=== PATIENT | male | born 1955 | race Caucasian/White ===

== ENCOUNTER 2019-05-07 11:06 | Inpatient (IN) | payer MEDICARE ==
[2019-05-07] MEDS ORDERED: LIDOCAINE 1% INJ 10MG/ML (20 ML MDV) ONE (12:20)
[2019-05-07] MEDS ORDERED: IV FLUID CONTINUATION 1,000 ML IV ONE (12:44)
[2019-05-07] MEDS: MIDAZOLAM (PF) 2 MG/2 ML VIAL IVP ONE ×2 (12:47→12:50)
[2019-05-07] MEDS ORDERED: BIVALIRUDIN BOLUS 250 MG/50 ML IV ONE (12:50)
[2019-05-07] MEDS ORDERED: BIVALIRUDIN 250 MG in SODIUM CHLORIDE 0.9% 50 ML IV ONE (12:50)
[2019-05-07] MEDS: NITROGLYCERIN 1000MCG/10ML SYRINGE INTRACORON ONE ×3 (12:51→13:15)
[2019-05-07] MEDS ORDERED: PRASUGREL 10 MG TAB ONE (12:55)
[2019-05-07] MEDS ORDERED: MIDAZOLAM (PF) 2 MG/2 ML VIAL IVP ONE (12:59)
[2019-05-07] MEDS ORDERED: PRASUGREL 10 MG TAB PO ONE (12:59)
[2019-05-07] MEDS ORDERED: IOPAMIDOL-370 125ML BTL INJ ONE (13:15)
[2019-05-07] MEDS ORDERED: IOPAMIDOL-370 50ML BTL INJ ONE (13:21)
[2019-05-07] MEDS ORDERED: HYDROmorphone 1 MG/ML 1 ML SYRINGE ONE (13:23)
[2019-05-07] MEDS ORDERED: HYDROmorphone 1 MG/ML 1 ML SYRINGE IVP ONE (13:24)
[2019-05-07] MEDS ORDERED: SODIUM CHLORIDE 0.9% 1,000 ML IV ONE (13:25)
[2019-05-07] MEDS ORDERED: ACETAMINOPHEN TAB 500 MG TAB PO PRN (13:38)
[2019-05-07] MEDS ORDERED: MAG HYDROX/AL HYDROX/SIMETH 30 ML CUP PO PRN (13:39)
[2019-05-07] MEDS ORDERED: ZOLPIDEM 5 MG TAB PO PRN (13:39)
[2019-05-07] MEDS ORDERED: NITROGLYCERIN SL TABS 0.4 MG TAB SUBLINGUAL PRN (13:39)
[2019-05-07] MEDS ORDERED: RX INFO: IV CONTRAST WAS GIVEN 1 EACH MISC MISCELLANE PRN (13:39)
[2019-05-07] MEDS ORDERED: ATROPINE SULFATE 0.1 MG/ML 10ML SYRINGE IV PRN (13:39)
[2019-05-07] MEDS ORDERED: SODIUM CHLORIDE 0.9% 1,000 ML IV SCH (13:45)
[2019-05-07 14:11] VITALS: BMI 32.5
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
--- NOTE | 2019-05-07 19:02 | LTR ---
DATE OF SERVICE: 05/07/[address] Philippe: Mr. Rivas Jerome underwent today a heart catheterization and that revealed severe disease involving the proximal left and mid left anterior descending artery. He underwent successful stenting of the mid LAD with good angiographic results and without any complication. I want to thank you for allowing us to participate in his care and please do not hesitate to call if you have any questions or concerns. Sincerely, MMCLEOPATRAL / IJN: [id number] /
[2019-05-07] MEDS ORDERED: ATORVASTATIN 80 MG TAB PO SCH (21:00)
[2019-05-07] MEDS ORDERED: ALPRAZolam 1 MG TAB PO SCH (21:00)
[2019-05-08 07:07] LABS: Basophils % (A) 1 %; Eosinophils # (A) 0.1 k/uL (0-0.7); Eosinophils % (A) 3 %; HCT 43.1 % (39.0-53.0); HGB 14.2 gm/dL (13.0-17.5); Lymphocytes # (A) 0.6 k/uL (1.0-4.8); Lymphocytes % (A) 17 %; MCH 28.9 pg (25.0-35.0); MCV 87.8 fL (80.0-100.0); Mean Platelet Volume 7.3; Monocytes # (A) 0.2 k/uL (0-1.0); Monocytes % (A) 7 %; Neutrophils # (A) 2.3 k/uL (1.3-7.7); Neutrophils % (A) 70 %; Platelet Count 138 k/uL (150-450); RBC 4.91 m/uL (4.30-5.90); WBC 3.3 k/uL (3.8-10.6)
[2019-05-08 07:14] LABS: African American GFR (CKD) >90 (>60 ml/min/1.73 sqM); Anion Gap 10 mmol/L; Blood Urea Nitrogen 18 mg/dL (9-20); Calcium 9.3 mg/dL (8.4-10.2); Carbon Dioxide 22 mmol/L (22-30); Chloride 107 mmol/L (98-107); Glucose 108 mg/dL (74-99); Sodium 139 mmol/L (137-145)
[2019-05-08] MEDS ORDERED: ASPIRIN 325 MG TAB PO SCH (09:00)
[2019-05-08] MEDS ORDERED: amLODIPine 5 MG TAB PO SCH (09:00)
[2019-05-08] MEDS ORDERED: VENLAFAXINE HCL ER 150 MG CAP PO SCH (09:00)
[2019-05-08] MEDS ORDERED: PRASUGREL 10 MG TAB PO SCH (09:00)
[2019-05-08 10:48] VITALS: BP 143/74; PULSE 66; RESP 16; TEMP 98.5
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
== END 2019-05-08 11:29 | disposition home or self-care (01) | DRG 247 ==
LOC: CATHCVL 11:06 → 3SCARD 11:07
PROVIDERS: ADMIT Internal Medicine Interventional Cardiology; ATTEND Internal Medicine Interventional Cardiology
PROC: 027034Z Dilation of Coronary Artery, One Artery with Drug-eluting Intraluminal Device, Percutaneous Approach (ICD-10-PCS; principal; 2019-05-07 12:22)
DX: I25.10 Atherosclerotic heart disease of native coronary artery without angina pectoris (principal); E78.5 Hyperlipidemia, unspecified; I10 Essential (primary) hypertension; Z82.49 Family history of ischemic heart disease and other diseases of the circulatory system; F17.210 Nicotine dependence, cigarettes, uncomplicated
CPT/HCPCS: 80048; 85025; C1874

== ENCOUNTER → 2021-03-01 | Outpatient (CLI) | payer MEDICARE ==
[2021-03-02 03:05] LABS: Chol/HDL Ratio 4.24
== END | disposition home or self-care (01) ==
LOC: LABWHC1 08:24
PROVIDERS: ATTEND Internal Medicine Interventional Cardiology
DX: E78.2 Mixed hyperlipidemia (principal)
CPT/HCPCS: 36415; 80061; 84450; 84460

== ENCOUNTER → 2021-03-01 | Outpatient (CLI) | payer MEDICARE ==
[2021-03-01 10:12] LABS: Basophils % (A) 1 %; Eosinophils # (A) 0.2 k/uL (0-0.7); Eosinophils % (A) 5 %; HCT 41.7 % (39.0-53.0); HGB 14.2 gm/dL (13.0-17.5); Lymphocytes # (A) 0.8 k/uL (1.0-4.8); Lymphocytes % (A) 22 %; MCH 29.9 pg (25.0-35.0); Mean Platelet Volume 7.7; Monocytes # (A) 0.3 k/uL (0-1.0); Monocytes % (A) 9 %; Neutrophils # (A) 2.1 k/uL (1.3-7.7); Neutrophils % (A) 61 %; Platelet Count 189 k/uL (150-450); RBC 4.74 m/uL (4.30-5.90); RDW 13.6 % (11.5-15.5); WBC 3.4 k/uL (3.8-10.6)
[2021-03-01 10:16] LABS: Potassium 4.8 mmol/L (3.5-5.1)
== END | disposition home or self-care (01) ==
LOC: LABPAT 09:21
PROVIDERS: ATTEND Orthopaedic Surgery
DX: Z01.818 Encounter for other preprocedural examination (principal); R22.32 Localized swelling, mass and lump, left upper limb
CPT/HCPCS: 80051; 85025

== ENCOUNTER 2021-03-03 11:01 | Day surgery (SDC) | payer MEDICARE ==
[2021-02-28 12:06] VITALS: BMI 30.2
--- NOTE | 2021-03-02 20:29 | HP ---
HISTORY AND PHYSICAL DATE OF SERVICE: Surgery scheduled for 03/03/2021 HISTORY OF PRESENT ILLNESS: Rivas Jerome is a 65-year-old patient seen with symptomatic soft tissue mass involving the left elbow. We discussed our options regarding treatment. He elected to proceed with excision of the symptomatic soft tissue mass. Consent regarding the procedure was obtained. PAST MEDICAL HISTORY: Hypertension, hyperlipidemia, coronary artery disease. PAST SURGICAL HISTORY: ORIF left femur/hip, cardiac stent, catheterization. DAILY MEDICATIONS: Amlodipine, aspirin, atorvastatin, benazepril, Effexor. ALLERGIES: NONE. SOCIAL HISTORY: Denies tobacco use. PHYSICAL EXAMINATION: Physical evaluation of the left elbow: There is a 1.5/2 by 2 cm soft tissue mass raised about 1 cm lateral aspect of left elbow, somewhat tender to palpation. No evidence for any infective process. His range of motion is -15 to 125 with some limited rotation of the forearm. He has good perfusion sensation distally. Left elbow radiographs revealed a calcific density along the area of the elbow along with osteoarthritic changes and evidence for previous ORIF of the radius and ulna. IMPRESSION: 1. Left elbow soft tissue mass. 2. Left elbow osteoarthritis. 3. Hypertension. 4. Hyperlipidemia. PLAN: Excision soft tissue mass, left elbow. Surgery scheduled for 03/03/2021. MMODL / IJN: [id number] /
[~2021-03-03 11:01] MED LIST: DEXAMETHASONE SOD PHOSPHATE 4 MG/ML 1 ML VIAL IV ONE; HYDROmorphone 0.5 MG/0.5 ML SYRINGE IVP PRN; LACTATED RINGERS 1,000 ML IV SCH; ONDANSETRON 4 MG/2 ML VIAL IVP ONE
[2021-03-03] MEDS ORDERED: fentaNYL (PF) 50 MCG/ML 2 ML AMP ONE (12:27)
[2021-03-03] MEDS ORDERED: BUPIVACAINE (PF) 0.25% 30 ML VIAL SQ ONE ×2 (12:27)
[2021-03-03] MEDS ORDERED: PROPOFOL 10 MG/ML 20 ML VIAL IV ONE (12:27)
[2021-03-03] MEDS ORDERED: MIDAZOLAM 2 MG/2 ML VIAL ONE (12:27)
[2021-03-03] MEDS ORDERED: KETAMINE 10 MG/ML 20 ML VIAL ONE (12:27)
[2021-03-03] MEDS ORDERED: ceFAZolin 1,000 MG in SODIUM CHLORIDE 0.9% 1,000 ML IRRIGATION ONE (12:47)
--- NOTE | 2021-03-03 13:06 | P.OP ---
Date of Procedure: 03/03/21 Preoperative Diagnosis: Symptomatic soft tissue mass left elbow Postoperative Diagnosis: Symptomatic ganglion cyst left elbow Procedure(s) Performed: Excision ganglion cyst left elbow Anesthesia: MAC, local Surgeon: Vladimir Donis Assistant Facility Manager #1: Darryn Billingsley Estimated Blood Loss (ml): 2 Pathology: none sent Condition: stable Disposition: PACU Indications for Procedure: 65-year-old gentleman seen with a symptomatic soft tissue mass lateral aspect of the left elbow. After we discussed options for treatment, he elected to proceed with surgical excision. Operative Findings: See description of procedure Description of Procedure: The patient was taken to the operative suite. He received preoperative IV antibiotics. He underwent IV sedation by the department of anesthesia. We placed a well-padded tourniquet along the proximal left upper extremity. The left upper extremity was prepped and draped in the normal sterile orthopedic fashion. I infiltrated the proposed incision site with 10 mL quarter percent plain Marcaine. When I noticed sufficient local analgesia the extremity was elevated and tourniquet insufflated to 250. I made a 4 cm incision over the area of the soft tissue mass. I dissected carefully down to the soft tissue mass. Identify the soft tissue mass. It appeared to be ganglion cyst measuring approximately 2 x 2 centimeters and raised 1 cm. I carefully dissected the ganglion cyst excised without difficulty. I cauterized the stalk. I explored the wound and it was stable. I irrigated the wound out copiously. I repaired the skin incision with nylon suture. I infiltrated the area with additional 10 mL of quarter percent plain Marcaine for postoperative analgesia. I applied sterile dressings. The tourniquet was released with immediate cap refill noted. Sterile Chris bandages was applied. The patient was awakened and transferred to recovery stable condition. Darryn JEFFRIES assisted with the procedure.
[2021-03-03 13:11] VITALS: TEMP 97.8
[2021-03-03 13:31] VITALS: RESP 16
[2021-03-03] MEDS ORDERED: KETOROLAC 15 MG/ML 1 ML VIAL IVP ONE (13:35)
[2021-03-03 14:12] VITALS: PULSE 62
[2021-03-03 14:38] VITALS: BP 130/75
== END 2021-03-03 14:45 | disposition home or self-care (01) ==
LOC: OR 11:01
PROVIDERS: ATTEND Orthopaedic Surgery
DX: M67.422 Ganglion, left elbow (principal); I10 Essential (primary) hypertension; E78.5 Hyperlipidemia, unspecified; I25.10 Atherosclerotic heart disease of native coronary artery without angina pectoris; G47.33 Obstructive sleep apnea (adult) (pediatric); Z95.5 Presence of coronary angioplasty implant and graft; Z98.890 Other specified postprocedural states; F32.9 Major depressive disorder, single episode, unspecified; Z79.82 Long term (current) use of aspirin; Z79.899 Other long term (current) drug therapy; Z88.1 Allergy status to other antibiotic agents
CPT/HCPCS: 88304; 24075; J2250; J1100; J0690 ×2; J2405; J3010; J1885; J2704

== ENCOUNTER → 2021-08-19 | Outpatient (CLI) | payer MEDICARE ==
[2021-08-19 16:37] LABS: African American GFR (CKD) >90 (>60 ml/min/1.73 sqM); Blood Urea Nitrogen 17 mg/dL (9-20); Non-African American GFR(CKD) >90 (>60 ml/min/1.73 sqM)
--- NOTE | 2021-08-19 20:49 | CT ---
EXAMINATION TYPE: CT angio chest DATE OF EXAM: 08/19/2021 COMPARISON: HISTORY: aneurysm CT DLP: 444.7 mGycm Automated exposure control for dose reduction was used. CONTRAST: CTA scan of the thorax is performed with IV Contrast, patient injected with 100 mL of Isovue 370, pul monary embolism protocol. MIP images are created and reviewed. 3D reconstructed images are created on an independent workstation and reviewed. FINDINGS: LUNGS: The lungs are grossly clear, there is no concerning parenchymal mass or nodule identified. T here is no pleural effusion or pneumothorax seen. The tracheobronchial tree is patent. AORTA: Root of the aorta measures approximately 4.1 cm, proximal ascending aorta 3.6 cm, proximal de scending aorta 2.8 cm. Aorta at the level of the hiatus is 2.9 cm. MEDIASTINUM: There is satisfactory enhancement of the pulmonary artery and its branches, there is no CT evidence for pulmonary embolism. There are no greater than 1 cm hilar or mediastinal lymph nodes. No pericardial effusion is seen. OTHER: Gallstones are noted incidentally. IMPRESSION: AORTIC MEASUREMENTS [id number]
== END | disposition home or self-care (01) ==
LOC: RADCTMAIN 15:57
PROVIDERS: ATTEND Internal Medicine Interventional Cardiology
DX: I71.2 Thoracic aortic aneurysm, without rupture (principal)
CPT/HCPCS: 82565; 84520; 71275; 36415; Q9967